=== PATIENT | male | born 1980 | race Caucasian/White ===

== ENCOUNTER 2021-08-05 20:37 | Emergency (ER) | payer OTHER ==
[~2021-08-05] VITALS: Ht 162.6 cm; Wt 75.0 kg
[2021-08-05 20:54] VITALS: BP 150/60
== END 2021-08-05 21:19 | disposition home or self-care (01) ==
LOC: ER 20:37
DX: G62.9 Polyneuropathy, unspecified (principal); E11.65 Type 2 diabetes mellitus with hyperglycemia
CPT/HCPCS: 82962; 99283